=== PATIENT | male | born 1980 | race African-American/Black ===

== ENCOUNTER 2017-06-11 05:38 | Emergency (ER) | payer MEDICAID ==
[~2017-06-11] VITALS: Ht 190.5 cm; Wt 93.0 kg
--- NOTE | 2017-06-11 06:30 | NUR ---
Pt ambulated to room with steady gait. Pt c/o several chronic problems. Sts he is out of his blood pressure medication. Pt c/o shortness of breath for several years. Pt speaking full sentences, resp even and unlabored. No obvious signs of distress. Pt c/o chronic left arm pain and denies any trauma. Pt also c/o left sided neck and head pain for several years. Pt seen by Dr. Dawson. EKG obtained and given to Dr. Dawson. Pt resting in position of comfort for self.
[2017-06-11 06:48] LABS: BASOPHILS # (AUTO) 0.1 K/uL (0.0-8.0); BASOPHILS % (AUTO) 1.2 % (0.0-2.0); EOSINOPHILS # (AUTO) 0.2 K/uL (0.0-0.7); HEMATOCRIT 43.5 % (40-50); HEMOGLOBIN 14.6 G/DL (14.0-18.0); LYMPHOCYTES % (AUTO) 32.2 % (20.5-51.5); MEAN CORPUSCULAR HEMOGLOBIN 32.9 UUG (27.0-31.0); MEAN CORPUSCULAR HGB CONC 34 g/dL (32.0-37.0); MEAN CORPUSCULAR VOLUME 97.8 FL (82.0-92.0); MONOCYTES # (AUTO) 0.3 K/UL (0.1-1.30); MONOCYTES % (AUTO) 5.1 % (0.0-11.0); NEUTROPHILS # (AUTO) 3.5 K/UL (1.8-8.9); NEUTROPHILS % (AUTO) 58.5 % (38.5-71.5); PLATELET COUNT (AUTO) 235 K/UL (150-450); RED BLOOD CELL COUNT(AUTO) 4.45 MIL/UL (4.7-6.1); WHITE BLOOD COUNT (AUTO) 6.1 K/UL (4.0-11.2)
--- NOTE | 2017-06-11 06:53 | NUR ---
Pt to CT via [facility]
[2017-06-11 06:55] LABS: POTASSIUM 3.9 mmol/L (3.5-5.1)
[2017-06-11 07:08] LABS: BILIRUBIN,DIRECT 0.1 mg/dL (0.0-0.2); BILIRUBIN,TOTAL 0.3 mg/dL (0.2-1.0); TOTAL PROTEIN, SERUM 6.6 g/dL (6.4-8.2)
--- NOTE | 2017-06-11 07:24 | NUR ---
Patient discharged to home in stable conditon. Written and verbal after care instructions given. Patient verbalizes understanding of instructions.
== END 2017-06-11 07:26 | disposition home or self-care (01) ==
LOC: ER 05:42
DX: I10 Essential (primary) hypertension (principal); H11.441 Conjunctival cysts, right eye; F12.10 Cannabis abuse, uncomplicated; K58.9 Irritable bowel syndrome, unspecified; F17.210 Nicotine dependence, cigarettes, uncomplicated
CPT/HCPCS: 36415; 70030-TC; 70450; 71010; 85025; 85730; 93005; A4663